=== PATIENT | male | born 1935 | race Caucasian/White ===

== ENCOUNTER → 2018-03-24 10:43 | Outpatient (CLI) | payer MEDICARE, BC, SELFPAY ==
[2018-03-24 12:46] LABS: HCT 38.5 % (40.0-50.0); HGB 12.8 g/dL (13.5-17.5); Mean Corp. HGB Concentration 33.2 g/dL (32.0-36.0); Mean Corpuscular Hemoglobin 31.8 pg (27.0-33.0); Mean Corpuscular Volume 95.8 fL (80-95); Mean Platelet Volume 11.3 fL (8.0-11.0); Platelet Count 233 x1000/uL (130-400); RBC 4.02 m/cumm (4.50-6.00); RBC Distribution Width 13.4 % (11.8-14.1); White Blood Cell Count 5.09 k/cumm (4.4-10.8)
[2018-03-24 13:03] LABS: ALT 20 U/L (12-78); AST 17 U/L (15-37); Albumin 3.9 g/dL (3.4-5.0); Alkaline Phosphatase 112 U/L (46-116); Anion Gap 8.5 mmol/L (3-11); BUN 13 mg/dL (7-18); Bilirubin, Total 0.4 mg/dL (0.2-1.0); CO2 28.5 mmol/L (21.0-32.0); CREATININE 1.24 mg/dL (0.70-1.30); Calcium 8.9 mg/dL (8.5-10.1); Chloride 103 mmol/L (98-107); Estimated GFR 56.09 (mL/min/1.73m2); Glucose 134 mg/dL (70-100); Potassium 3.8 mmol/L (3.5-5.1); Sodium 140 mmol/L (136-145); TSH 1.67 uIU/mL (0.358-3.74)
== END ==
PROVIDERS: PCP Emergency Medicine; Visit Provider Emergency Medicine
DX: I35.0 Nonrheumatic aortic (valve) stenosis (principal); R53.83 Other fatigue
CPT/HCPCS: 36415; 80053; 85027; 84443; 86140

== ENCOUNTER → 2018-04-10 01:23 | Outpatient (CLI) | payer MEDICARE, BC, SELFPAY ==
--- NOTE | 2018-04-10 10:30 | MERGE_ITS ---
*[facility]* *[facility]* [address] [place] [address] Date of study: 04/10/2018 Transthoracic Echocardiography M-mode, complete 2D, complete spectral Doppler, and color Doppler *STUDY CONCLUSIONS* Summary: 1. Left ventricle: Systolic function was normal. The estimated ejection fraction was 60-65%. Doppler parameters are consistent with high ventricular filling pressure. 2. Aortic valve: There was moderate stenosis. There was moderate regurgitation. Peak velocity (S): 3m/sec. Mean gradient (S): 19.2mm Hg. VTI ratio of LVOT to aortic valve: 0.38. Valve area (VTI): 1.2cm^2. 3. Mitral valve: There was mild regurgitation. 4. Left atrium: The atrium was mildly dilated. 5. Right ventricle: The cavity size was normal. Wall thickness was normal. Systolic function was normal. 6. Right atrium: The atrium was mildly dilated. 7. Atrial septum: No defect or patent foramen ovale was identified. 8. Pulmonic valve: There was moderate regurgitation. 9. Pulmonary arteries: Pulmonary systolic pressure was in the range of 20mm Hg to 30mm Hg. 10. Inferior vena cava: The vessel was patent and normal in size. The respirophasic diameter changes were in the normal range (greater than or equal to 50%), consistent with normal central venous pressure. *PATIENT PRESENTATION* Height: 170.2cm ((67in) ) S/D Pressure: 155 / 72 Weight: 79.4kg ((174.6lb) ) BSA: 1.91m^2 Test start time: 10:45 AM. Test stop time: 11:35 AM. ORDERING Rios Dhillon REFERRING Rios Dhillon PERFORMING Unknown PERFORMING [facility] [employer] RT GREY Overton (R)), [facility] *PROCEDURE DATA* Procedure information: The patient was identified by two identifiers. This study was interpreted by [facility]. Pertinent images and digital data are archived for permanent storage and are available for subsequent review. Comparison was made to the study of 04/18/2014. Study status: Routine. Transthoracic echocardiography. M-mode, complete 2D, complete spectral Doppler, and color Doppler. A Transthoracic Echocardiogram was performed. Scanning was performed from the parasternal, apical, subcostal, and suprasternal notch acoustic windows. Images were obtained using an [id number] cardiac ultrasound machine. Image quality was adequate. Study completion: The patient tolerated the procedure well. History: PMH: Non rheumatic aortic valve stenosis. fatigue. *CARDIAC ANATOMY* Left ventricle: Systolic function was normal. The estimated ejection fraction was 60-65%. The tissue Doppler parameters were abnormal. Findings consistent with diastolic dysfunction. Doppler parameters are consistent with high ventricular filling pressure. Aortic valve: Doppler: There was moderate stenosis. There was moderate regurgitation. VTI ratio of LVOT to aortic valve: 0.38. Valve area (VTI): 1.2cm^2. Indexed valve area (VTI): 0.6cm^2/m^2. Peak velocity ratio of LVOT to aortic valve: 0.33. Valve area (Vmax): 1cm^2. Indexed valve area (Vmax): 0.5cm^2/m^2. Mean velocity ratio of LVOT to aortic valve: 0.33. Valve area (Vmean): 1cm^2. Indexed valve area (Vmean): 0.5cm^2/m^2. Mean gradient (S): 19.2mm Hg. Peak gradient (S): 35.1mm Hg. Aorta: Aortic root: The aortic root was normal in size. Ascending aorta: The ascending aorta was normal in size. Mitral valve: Doppler: There was no evidence for stenosis. There was mild regurgitation. Valve area by pressure half-time: 2cm^2. Indexed valve area by pressure half-time: 1.1cm^2/m^2. Left atrium: The atrium was mildly dilated. Atrial septum: No defect or patent foramen ovale was identified. Right ventricle: The cavity size was normal. Wall thickness was normal. Systolic function was normal. Pulmonic valve: Doppler: There was no evidence for stenosis. There was moderate regurgitation. Tricuspid valve: Doppler: There was mild regurgitation. Pulmonary artery: Poorly visualized. Pulmonary systolic pressure was in the range of 20mm Hg to 30mm Hg. Right atrium: The atrium was mildly dilated. Pericardium: There was no pericardial effusion. Systemic veins: Inferior vena cava: Well visualized. The vessel was patent and normal in size. The respirophasic diameter changes were in the normal range (greater than or equal to 50%), consistent with normal central venous pressure. Baseline ECG: Bradycardia. Measurements Left ventricle Value Reference LV ID, ED, PLAX 4.8 cm 3.5 - 6.0 LV ID, ES, PLAX 3.3 cm 2.1 - 4.0 LV PW thickness, ED, PLAX 1.0 cm LV end-diastolic volume, 1-p A2C 82 ml LV ejection fraction, 1-p A2C 64 % LV end-diastolic volume, 1-p A4C 104 ml LV ejection fraction, 1-p A4C 62 % LV e', lateral 0.055 m/sec LV E/e', lateral 12 LV e', medial 0.047 m/sec LV E/e', medial 14 LV e', average 0.051 m/sec LV E/e', average 12 Ventricular septum Value Reference IVS thickness, ED, PLAX 1.2 cm LVOT Value Reference LVOT ID, A-P 2.0 cm LVOT area 3.1 cm^2 LVOT peak velocity, S 0.99 m/sec LVOT mean velocity, S 0.7 m/sec LVOT VTI, S 26.0 cm LVOT peak gradient, S 3.9 mm Hg LVOT mean gradient, S 2.2 mm Hg Stroke volume (SV), LVOT DP 80 ml Stroke index (SV/bsa), LVOT DP 42 ml/m^2 Aortic valve Value Reference Aortic valve peak velocity, S 3 m/sec Aortic valve mean velocity, S 2.1 m/sec Aortic valve VTI, S 68.8 cm Aortic mean gradient, S 19.2 mm Hg Aortic peak gradient, S 35.1 mm Hg VTI ratio, LVOT/AV 0.38 Aortic valve area, VTI 1.2 cm^2 Velocity ratio, peak, LVOT/AV 0.33 Aortic valve area, peak velocity 1 cm^2 Velocity ratio, mean, LVOT/AV 0.33 Aortic valve area, mean velocity 1 cm^2 Aortic valve area/bsa, mean velocity 0.5 cm^2/m^2 Aortic regurg deceleration 136 cm/s^2 Aortic regurg pressure half-time 759 ms Aorta Value Reference Aortic root ID, ED 3.5 cm Ascending aorta ID, A-P, S 3.2 cm RVOT Value Reference RVOT VTI, S 16.0 cm Left atrium Value Reference LA ID, A-P, ES 4.3 cm LA ID/bsa, A-P 2.2 cm/m^2 <=2.2 LA area, ES, A4C 18.9 cm^2 8.8 - 23.4 LA area, ES, A2C 19 cm^2 LA volume/bsa, ES, 1-p A4C 31 ml/m^2 LA volume, ES, 2-p 56 ml LA volume/bsa, ES, 2-p 29 ml/m^2 LA/aortic root ratio 1.22 Mitral valve Value Reference Mitral E-wave peak velocity 0.64 m/sec Mitral A-wave peak velocity 0.98 m/sec Mitral deceleration time (H) 375 ms 150 - 230 Mitral pressure half-time 109 ms Mitral E/A ratio, peak 0.65 Mitral valve area, PHT, DP 2 cm^2 Pulmonary veins Value Reference Pulmonary vein peak velocity, S 0.66 m/sec Pulmonary vein peak velocity, D 0.45 m/sec Pulmonary vein velocity ratio, peak, 1.46 S/D Pulmonary vein A-wave reversal peak 0.34 m/sec velocity Pulmonary vein A-wave reversal 215 ms duration Tricuspid valve Value Reference Tricuspid regurg peak velocity 2.5 m/sec Tricuspid peak RV-RA gradient 24.6 mm Hg Right atrium Value Reference RA area, ES, A4C 17.3 cm^2 8.3 - 19.5 Legend: (L) and (H) corby values outside specified reference range. I have personally reviewed the images and have reviewed and edited the reported findings. Electronically signed by Ishmael Maier MD 04/10/2018 12:34
== END ==
PROVIDERS: PCP Emergency Medicine; Visit Provider Emergency Medicine
DX: I35.2 Nonrheumatic aortic (valve) stenosis with insufficiency (principal); R53.83 Other fatigue; I34.0 Nonrheumatic mitral (valve) insufficiency; I37.1 Nonrheumatic pulmonary valve insufficiency; I51.7 Cardiomegaly
CPT/HCPCS: 93306

== ENCOUNTER 2018-09-01 10:28 | Outpatient (CLI) | payer MEDICARE, BC, SELFPAY ==
[2018-09-01 13:18] LABS: Cholesterol 135 mg/dL (50-200); HDL Cholesterol 37 mg/dL (40-60); LDL CHOLESTEROL 83 mg/dL (<100); Triglyceride 107 mg/dL (30-150)
[2018-09-01 13:40] LABS: Uric Acid 8.3 mg/dL (3.5-7.2)
== END 2018-09-01 10:48 ==
PROVIDERS: PCP Emergency Medicine; Visit Provider Emergency Medicine
DX: E78.5 Hyperlipidemia, unspecified (principal); E11.9 Type 2 diabetes mellitus without complications; M10.9 Gout, unspecified
CPT/HCPCS: 36415; 80061; 83721; 83036; 84550

== ENCOUNTER 2019-01-22 10:57 | Outpatient (CLI) | payer MEDICARE, BC, SELFPAY ==
[2019-01-22 12:47] LABS: Anion Gap 10.2 mmol/L (3-11); BUN 17 mg/dL (7-18); CO2 27.8 mmol/L (21.0-32.0); CREATININE 1.26 mg/dL (0.70-1.30); Calcium 9.4 mg/dL (8.5-10.1); Chloride 103 mmol/L (98-107); Estimated GFR 54.93 (mL/min/1.73m2); Glucose 120 mg/dL (70-100); Sodium 141 mmol/L (136-145); Uric Acid 9.6 mg/dL (3.5-7.2)
[2019-01-22 13:08] LABS: Hemoglobin A1C 6.4 % (4.5-6.2)
[2019-01-22 13:25] LABS: Microalb ug/mg Crea 3.1 ug/mg Cr
== END 2019-01-22 11:17 ==
PROVIDERS: PCP Emergency Medicine; Visit Provider Emergency Medicine
DX: I10 Essential (primary) hypertension (principal); E11.9 Type 2 diabetes mellitus without complications; M10.9 Gout, unspecified
CPT/HCPCS: 36415; 80048; 82043; 82570; 83036; 84550

== ENCOUNTER 2019-05-30 07:00 | Outpatient (CLI) | payer MEDICARE, BC, SELFPAY ==
[2019-05-30 12:14] LABS: Uric Acid 8.1 mg/dL (3.5-7.2)
[2019-05-30 12:35] LABS: Hemoglobin A1C 6.2 % (4.5-6.2)
== END 2019-05-30 07:20 ==
PROVIDERS: Visit Provider Emergency Medicine
DX: E11.9 Type 2 diabetes mellitus without complications (principal); M10.9 Gout, unspecified
CPT/HCPCS: 36415; 83036; 84550

== ENCOUNTER 2019-11-22 09:45 | Outpatient (CLI) | payer MEDICARE, BC, SELFPAY ==
--- NOTE | 2019-11-22 09:30 | DI.RAD_ITS ---
EXAM: XR ANKLE RT COMPLETE CLINICAL HISTORY: ANKLE PAIN TECHNIQUE: COMPARISON: No exams were available for comparison FINDINGS: Three views were obtained. The ankle mortise appears fairly well maintained. There are marginal ost eophytes of the joints of the ankle. There may be a small loose body anteriorly at the tibiotalar rigoberto int. Mild degenerative changes of the subtalar articulations noted as well. 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
== END 2019-11-22 10:05 ==
PROVIDERS: PCP Emergency Medicine; Referring Provider Emergency Medicine; Visit Provider Student in an Organized Health Care Education/Training Program
DX: M25.571 Pain in right ankle and joints of right foot (principal); M19.071 Primary osteoarthritis, right ankle and foot; M76.71 Peroneal tendinitis, right leg; I10 Essential (primary) hypertension
CPT/HCPCS: 20605; 99214; 73610; J1030; L1902

== ENCOUNTER → 2020-01-28 14:26 | Outpatient (BNVA) | payer MEDICARE, BC, SELFPAY | PROVIDERS: PCP Emergency Medicine; Referring Provider Emergency Medicine; Visit Provider Student in an Organized Health Care Education/Training Program | DX: M76.71 Peroneal tendinitis, right leg (principal); I10 Essential (primary) hypertension; Z98.890 Other specified postprocedural states | CPT/HCPCS: 99213 ==